=== PATIENT | female | born 1945 | race Caucasian/White ===

== ENCOUNTER → 2016-05-03 | Outpatient (CLI) | payer OTHER ==
[~2016-05-03] MED LIST: ASPIRIN81 MG; ASPIRIN81 MG PO; CELEXA20 MG PO; EMERGEN-C 1,01000 MG PO; FLONASE 0.05% N16 G1; LORTAB 5-325 M1 EACH PO; MAGNESIUM400 MG PO; MULTI VITAMIN1 EACH PO; NAPROSYN375 MG PO; OMEPRAZOLE20 M1 PO; OXYCODON-ACETA1 EAC1 PO; PROBIOTIC1 EAC1 PO
[2016-05-03 14:54] LABS: INR 2.5; PROTHROMBIN TIME (PATIENT) 26.7 SECONDS (9.6-11.5)
== END | disposition home or self-care (01) ==
LOC: CLAB 14:12
PROVIDERS: Orthopaedic Surgery
DX: Z51.81 Encounter for therapeutic drug level monitoring (principal); Z96.651 Presence of right artificial knee joint; Z79.01 Long term (current) use of anticoagulants
CPT/HCPCS: 36415; 85610

== ENCOUNTER 2016-06-29 19:31 | Emergency (ER) | payer OTHER ==
[2016-06-29 19:12] LABS: URINE SOURCE CLEAN CATCH
[2016-06-29 19:14] LABS: URINE APPEARANCE CLEAR; URINE BILIRUBIN NEG (NEG); URINE BLOOD TRACE-INTACT (NEG); URINE COLOR YELLOW; URINE GLUCOSE NEG (NORM); URINE KETONE NEG (NEG); URINE LEUKOCYTE ESTERASE 1+ (NEG); URINE NITRATE NEG (NEG); URINE PH 6.5 (5-8); URINE PROTEIN NEG (NEG); URINE UROBILINOGEN 0.2 MG/DL (NORM)
[2016-06-29 19:17] LABS: MICRO INDICATED? YES
[2016-06-29 19:20] LABS: CULTURE INDICATED? YES; URINE BACTERIA NEG (NEG); URINE WBC 25-50 /[HPF] (0-5)
[2016-06-29 19:21] LABS: URINE SQUAMOUS EPITHELIAL CELL MODERATE /[HPF]
== END 2016-06-29 20:04 | disposition home or self-care (01) ==
LOC: SED 19:31
PROVIDERS: Emergency Medicine
DX: N39.0 Urinary tract infection, site not specified (principal); F17.200 Nicotine dependence, unspecified, uncomplicated; Z88.2 Allergy status to sulfonamides; Z88.0 Allergy status to penicillin; Z88.8 Allergy status to other drugs, medicaments and biological substances; Z79.899 Other long term (current) drug therapy
CPT/HCPCS: 81003; 87086; 99283